=== PATIENT | female | born 1950 | race Caucasian/White ===

== ENCOUNTER 2017-01-30 13:00 | Outpatient (CLI) | payer MEDICARE, OTHER ==
[~2017-01-30] VITALS: Ht 167.6 cm; Wt 67.1 kg
[2017-01-30 10:25] LABS: HEMATOCRIT 37.2 % (36.0-48.0); HEMOGLOBIN 12.1 g/dL (12-16); MCH 28.8 pg (26.0-34.0); MCHC 32.5 g/dL (31.0-37.0); MCV 88.6 fL (80.0-100.0); MEAN PLATELET VOLUME 9.3 fL (7.4-10.4); RBC 4.2 10x6/uL (4.00-5.40); RDW 12.4 % (11.5-14.5); WBC 4.8 10x3/uL (4.8-10.8)
[2017-01-30 10:39] LABS: CALC OSMOLALITY 282 mosm/kg (275-300); CALCIUM 9.1 mg/dL (8.5-10.1); CARBON DIOXIDE 30.5 mmol/L (21.0-32.0); CHLORIDE - SERUM 106 mmol/L (98-107); CREATININE - SERUM 0.8 mg/dL (0.6-1.3); GLUCOSE 132 mg/dL (74-106); SODIUM 141 mmol/L (136-145); UREA NITROGEN 12 mg/dL (7-18); eGFR NON AFRICAN AMERICAN 75 mL/min (90-120)
[2017-01-30 11:11] VITALS: BP 144/71; Ht 167.6 cm; Wt 67.1 kg
[~2017-01-30 13:00] MED LIST: CALCIUM 600 +1 EAC3 PO; GLIPIZIDE10 MG PO; LISINOPRIL5 MG PO; NORVASC5 MG PO; PRAVASTATIN SOD10 MG PO; PRAVASTATIN TAB 10M; ULTRAM50 MG PO
--- NOTE | 2017-01-30 14:11 | NUR ---
1400 PT RETURNED TO 2503 BY STRETCHER, CASE HAS BEEN CANCELLED TODAY. WATER SERVED. IV DC'D WITH CATH INTACT. PT GETTING DRESSED. DC INSTS REVIEWED.
== END 2017-01-30 23:59 | disposition home or self-care (01) ==
LOC: D.PAN 13:00 → D.OPS 14:15 → D.PAN 23:59
PROVIDERS: Anesthesiology
DX: M72.2 Plantar fascial fibromatosis (principal); J45.909 Unspecified asthma, uncomplicated; E11.9 Type 2 diabetes mellitus without complications; I10 Essential (primary) hypertension; Z01.810 Encounter for preprocedural cardiovascular examination; Z01.811 Encounter for preprocedural respiratory examination; Z01.812 Encounter for preprocedural laboratory examination; Z53.9 Procedure and treatment not carried out, unspecified reason